=== PATIENT | female | born 1960 | race African-American/Black ===

== ENCOUNTER 2018-06-07 10:28 | Outpatient (CLI) | payer OTHER | END 2018-06-07 10:29 | disposition home or self-care (01) | LOC: BICMAMMO 10:28 | PROVIDERS: ATTEND Physician Assistant | DX: Z12.31 Encounter for screening mammogram for malignant neoplasm of breast (principal) | CPT/HCPCS: 77063; 77067 ==

== ENCOUNTER 2018-11-15 10:28 | Emergency (ER) | payer OTHER ==
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
[2018-11-15] MEDS ORDERED: Naproxen 500 MG TAB ONE (13:08)
== END 2018-11-15 13:12 | disposition home or self-care (01) ==
LOC: ERS 10:28
DX: R07.89 Other chest pain (principal); E66.9 Obesity, unspecified; V43.52XA Car driver injured in collision with other type car in traffic accident, initial encounter
CPT/HCPCS: 71046

== ENCOUNTER 2022-04-24 10:00 | Outpatient (CLI) | payer BC, OTHER | END 2022-04-24 10:01 | disposition home or self-care (01) | LOC: BICMAMMO 10:00 | PROVIDERS: ATTEND Family Medicine | DX: Z12.31 Encounter for screening mammogram for malignant neoplasm of breast (principal) | CPT/HCPCS: 77063; 77067 ==